=== PATIENT | female | born 2000 | race Caucasian/White ===

== ENCOUNTER 2021-01-02 15:18 | Emergency (ER) | payer OTHER ==
[~2021-01-02 15:18] MED LIST: AMOXICILLIN500 M1 PO
[2021-01-02 16:55] LABS: BASOPHIL 1.3 % (0-2); EOSINOPHIL 1.1 % (0-5); HCT 45.8 % (37.0-47.0); LYMPHOCYTE 32.8 % (15-48); MCH 30.1 pg (25.0-31.0); MCHC 32.8 g/dL (32.0-36.0); MONOCYTE 6.6 % (0-12); NRBC 0; PLT 195 K/uL (150-400); RBC 4.98 M/uL (4.20-5.40); RDW 11.3 % (11.5-14.0); WBC 4.7 K/uL (4.0-10.5)
[2021-01-02 17:14] LABS: BUN/CREAT RATIO (CALC) 21.3 RATIO; CREATININE 0.89 mg/dL (0.51-0.95); POTASSIUM 4.2 mmol/L (3.5-5.1)
== END 2021-01-02 19:52 | disposition home or self-care (01) ==
LOC: FER 15:18
PROVIDERS: Nurse Practitioner Family
DX: S86.911A Strain of unspecified muscle(s) and tendon(s) at lower leg level, right leg, initial encounter (principal); F32.9 Major depressive disorder, single episode, unspecified; F41.9 Anxiety disorder, unspecified; Z88.6 Allergy status to analgesic agent; Z91.040 Latex allergy status; Z91.048 Other nonmedicinal substance allergy status; Z79.3 Long term (current) use of hormonal contraceptives; Z79.899 Other long term (current) drug therapy; X58.XXXA Exposure to other specified factors, initial encounter
CPT/HCPCS: 36415; 73564; 80048; 85025; 85379

== ENCOUNTER 2021-03-09 09:43 | Emergency (ER) | payer OTHER ==
[2021-03-09] MEDS ORDERED: RIZATRIPTAN10 M1 PO (12:31)
== END 2021-03-09 13:03 | disposition home or self-care (01) ==
LOC: FER 09:43
DX: S09.90XA Unspecified injury of head, initial encounter (principal); Z88.6 Allergy status to analgesic agent; Z91.040 Latex allergy status; W55.22XA Struck by cow, initial encounter; Y92.009 Unspecified place in unspecified non-institutional (private) residence as the place of occurrence of the external cause
CPT/HCPCS: 70450; J3030